=== PATIENT | male | born 1945 | race Caucasian/White ===

== ENCOUNTER → 2017-05-04 | Outpatient (REF) | payer OTHER | LOC: M LAB REF 17:12 | PROVIDERS: ATTEND Urology | DX: R35.0 Frequency of micturition (principal) ==

== ENCOUNTER → 2018-02-22 | Outpatient (REF) | payer OTHER ==
[2018-02-22 12:06] LABS: ALBUMIN 4.2 GM/DL (3.2-5.2); ALBUMIN/GLOBULIN RATIO 1.17 (1.00-1.93); ALKALINE PHOSPHATASE 53 U/L (45-117); ALT/SGPT 40 U/L (12-78); ANION GAP 8 MEQ/L (8-16); AST/SGOT 23 U/L (7-37); BILIRUBIN,TOTAL 0.5 MG/DL (0.2-1.0); BLOOD UREA NITROGEN 20 MG/DL (7-18); CALCIUM LEVEL 8.9 MG/DL (8.8-10.2); CARBON DIOXIDE LEVEL 30 MEQ/L (21-32); CHLORIDE LEVEL 102 MEQ/L (98-107); CHOLESTEROL LEVEL 150 MG/DL (<200); CHOLESTEROL RISK RATIO 3.571 (<5); CREATININE FOR GFR 1.28 MG/DL (0.70-1.30); GLUCOSE, FASTING 104 MG/DL (70-100); HDL CHOLESTEROL 42 MG/DL (>40); LDL CHOLESTEROL 90.8 MG/DL (<100); NON-HDL-C 108 MG/DL; POTASSIUM SERUM 3.9 MEQ/L (3.5-5.1); SODIUM LEVEL 140 MEQ/L (136-145); TOTAL PROTEIN 7.8 GM/DL (6.4-8.2); TRIGLYCERIDES LEVEL 86 MG/DL (<150)
== END ==
LOC: M SFHCCLAY 07:37
DX: I10 Essential (primary) hypertension (principal); E78.2 Mixed hyperlipidemia
CPT/HCPCS: 84443

== ENCOUNTER → 2018-03-14 | Outpatient (REF) | payer OTHER ==
[2018-03-14 16:50] LABS: ANION GAP 7 MEQ/L (8-16); BLOOD UREA NITROGEN 17 MG/DL (7-18); CALCIUM LEVEL 8.7 MG/DL (8.8-10.2); CARBON DIOXIDE LEVEL 30 MEQ/L (21-32); CHLORIDE LEVEL 101 MEQ/L (98-107); CREATININE FOR GFR 1.18 MG/DL (0.70-1.30); GLOMERULAR FILTRATION RATE > 60.0 (>42); GLUCOSE, FASTING 95 MG/DL (70-100); POTASSIUM SERUM 4.1 MEQ/L (3.5-5.1); SODIUM LEVEL 138 MEQ/L (136-145); URIC ACID 8.2 MG/DL (3.5-7.2)
[2018-03-14 17:00] LABS: FOLATE 11.2 NG/ML (>5.4); VITAMIN B12 LEVEL 288 PG/ML (247-911)
[2018-03-14 18:15] LABS: BASO % 0.3 % (0.0-1.0); EOS % 0.7 % (0.0-3.0); HEMATOCRIT 39.5 % (42.0-52.0); IMMATURE GRANULOCYTE % 0.3 % (0-3.0); LYMPH # 1.8 10^3/uL (1.5-4.5); LYMPH % 29.5 % (24.0-44.0); MEAN CORPUSCULAR HGB CONC 32.9 g/dl (32.0-36.5); MEAN CORPUSCULAR VOLUME 97.3 fl (80.0-96.0); MONO # 0.7 10^3/uL (0.0-0.8); MONO % 11.6 % (0.0-5.0); NEUTROPHILS # 3.4 10^3/uL (1.8-7.7); NEUTROPHILS % 57.6 % (36.0-66.0); PLATELET COUNT, AUTOMATED 195 10^3/uL (150-450); RED BLOOD COUNT 4.06 10^6/uL (4.30-6.10); RED CELL DISTRIBUTION WIDTH 12.4 % (11.5-14.5); WHITE BLOOD COUNT 5.9 10^3/uL (4.0-10.0)
== END ==
LOC: M SFHCCLAY 11:46
DX: M79.675 Pain in left toe(s) (principal); R20.2 Paresthesia of skin
CPT/HCPCS: 82746

== ENCOUNTER → 2018-06-29 | Outpatient (REF) | payer OTHER ==
[2018-06-29 12:16] LABS: ANION GAP 9 MEQ/L (8-16); BLOOD UREA NITROGEN 17 MG/DL (7-18); CALCIUM LEVEL 8.8 MG/DL (8.8-10.2); CARBON DIOXIDE LEVEL 29 MEQ/L (21-32); CHLORIDE LEVEL 103 MEQ/L (98-107); CREATININE FOR GFR 1.12 MG/DL (0.70-1.30); GLOMERULAR FILTRATION RATE > 60.0 (>42); GLUCOSE, FASTING 91 MG/DL (70-100); POTASSIUM SERUM 4.3 MEQ/L (3.5-5.1); SODIUM LEVEL 141 MEQ/L (136-145)
== END ==
LOC: M SFHCCLAY 08:12
DX: M10.072 Idiopathic gout, left ankle and foot (principal)
CPT/HCPCS: 84550

== ENCOUNTER → 2018-08-08 | Outpatient (REF) | payer OTHER ==
[2018-08-08 17:22] LABS: ALBUMIN 4.1 GM/DL (3.2-5.2); ALBUMIN/GLOBULIN RATIO 1.11 (1.00-1.93); ALKALINE PHOSPHATASE 74 U/L (45-117); ALT/SGPT 42 U/L (12-78); ANION GAP 7 MEQ/L (8-16); AST/SGOT 25 U/L (7-37); BILIRUBIN,TOTAL 0.6 MG/DL (0.2-1.0); BLOOD UREA NITROGEN 17 MG/DL (7-18); CALCIUM LEVEL 8.8 MG/DL (8.8-10.2); CARBON DIOXIDE LEVEL 30 MEQ/L (21-32); CHLORIDE LEVEL 101 MEQ/L (98-107); CREATININE FOR GFR 1.18 MG/DL (0.70-1.30); GLOMERULAR FILTRATION RATE > 60.0 (>42); GLUCOSE, FASTING 132 MG/DL (70-100); SODIUM LEVEL 138 MEQ/L (136-145); TOTAL PROTEIN 7.8 GM/DL (6.4-8.2)
== END ==
LOC: M SFHCCLAY 11:54
DX: R10.84 Generalized abdominal pain (principal); Z23 Encounter for immunization
CPT/HCPCS: 80053

== ENCOUNTER 2018-11-28 10:02 | Day surgery (SDC) | payer MEDICARE ==
[~2018-11-28] VITALS: Ht 188 cm; Wt 104.3 kg
[~2018-11-28 10:02] MED LIST: ALFU10TA2 PO; ALLO100T PO; ASPI1TAB PO; AVOD0.5C PO; HYDR25TAB PO; MELA10CA PO; NS 1,000 ML IV ONE; PROBCAP4 PO; SIMV20TA2 PO
[2018-11-28] MEDS ORDERED: fentaNYL 100 MCG/2 ML INJECTION (J3010) As Ordered ONE (11:41)
[2018-11-28] MEDS ORDERED: LIDOCAINE 2% INJ 100 MG/5 ML SDV (FOR ANES.) As Ordered ONE (11:52)
[2018-11-28] MEDS ORDERED: PROPOFOL 200 MG/20 ML VIAL As Ordered ONE (11:52)
--- NOTE | 2018-11-28 12:08 | ROOR ---
Patient Name: Juwan Cisneros Procedure Date: 11/28/2018 11:56 AM Date of : 1945 Age: 73 Room: [facility] Gender: Male Note Status: Finalized Procedure: Upper GI endoscopy Indications: Epigastric abdominal pain (resolved) Providers: Daniel CAPPS MD Referring MD: GEETA SHELTON DO Requesting Provider: Medicines: Monitored Anesthesia Care Complications: No immediate complications. Procedure: Pre-Anesthesia Assessment: - The heart rate, respiratory rate, oxygen saturations, blood pressure, adequacy of pulmonary ventilation, and response to care were monitored throughout the procedure. The Endoscope was introduced through the mouth, and advanced to the second part of duodenum. The upper GI endoscopy was accomplished without difficulty. The patient tolerated the procedure well. Findings: The esophagus was normal. The stomach was normal. The examined duodenum was normal. Impression: - Normal esophagus. - Normal stomach. - Normal examined duodenum. - No specimens collected. Recommendation: - Observe patient's clinical course. - I anticipate no further need for intervention. - Continue present medications. Daniel Capps MD Daniel CAPPS MD 11/28/2018 12:07:17 PM This report has been signed electronically. Number of Addenda: 0 Note Initiated On: 11/28/2018 11:56 AM Estimated Blood Loss: Estimated blood loss: none.
--- NOTE | 2018-11-28 12:29 | ROOR ---
Patient Name: Juwan Cisneros Procedure Date: 11/28/2018 11:58 AM Date of : 1945 Age: 73 Room: [facility] Gender: Male Note Status: Finalized Procedure: Colonoscopy Indications: Generalized abdominal pain, Clinically significant diarrhea of unexplained origin (resolved) Providers: Daniel CAPPS MD Referring MD: GEETA SHELTON DO Requesting Provider: Medicines: Monitored Anesthesia Care Complications: No immediate complications. Procedure: Pre-Anesthesia Assessment: - The heart rate, respiratory rate, oxygen saturations, blood pressure, adequacy of pulmonary ventilation, and response to care were monitored throughout the procedure. The Colonoscope was introduced through the anus and advanced to the terminal ileum, with identification of the appendiceal orifice and IC valve. The colonoscopy was performed without difficulty. The patient tolerated the procedure well. The quality of the bowel preparation was good. Findings: The perianal and digital rectal examinations were normal. Multiple small and large-mouthed diverticula were found in the sigmoid colon and descending colon. Internal hemorrhoids were found during retroflexion. The hemorrhoids were medium-sized. There was a pendulous medium-sized lipoma, 30 mm in diameter, with positive "pillow sign" on manipulation with biopsy forcep, located in the proximal transverse colon. The exam was otherwise without abnormality on direct and retroflexion views. Impression: - Diverticulosis in the sigmoid colon and in the descending colon. - Internal hemorrhoids. - Medium-sized lipoma in the proximal transverse colon. - The examination was otherwise normal on direct and retroflexion views. - No specimens collected. Recommendation: - Continue present medications. Daniel Capps MD Daniel CAPPS MD 11/28/2018 12:28:55 PM This report has been signed electronically. Number of Addenda: 0 Note Initiated On: 11/28/2018 11:58 AM Estimated Blood Loss: Estimated blood loss: none.
[2018-11-28 12:56] VITALS: BP 121/79
== END 2018-11-28 12:57 | disposition home or self-care (01) ==
LOC: M OPP 10:02
PROVIDERS: ATTEND Internal Medicine Gastroenterology
DX: K64.8 Other hemorrhoids (principal); D17.5 Benign lipomatous neoplasm of intra-abdominal organs; K57.30 Diverticulosis of large intestine without perforation or abscess without bleeding; R10.84 Generalized abdominal pain; R19.7 Diarrhea, unspecified; R10.13 Epigastric pain; Z79.82 Long term (current) use of aspirin; Z79.899 Other long term (current) drug therapy; Z88.8 Allergy status to other drugs, medicaments and biological substances
CPT/HCPCS: 43239; 45378; J3010

== ENCOUNTER → 2019-02-08 | Outpatient (REF) | payer OTHER ==
[~2019-02-08] MED LIST changes: -ASPI1TAB PO; +ASPI81TA26 PO; -NS 1,000 ML IV ONE
[2019-02-08 18:25] LABS: ALBUMIN 4.1 GM/DL (3.2-5.2); ALT/SGPT 33 U/L (12-78); BILIRUBIN,TOTAL 0.7 MG/DL (0.2-1.0); BLOOD UREA NITROGEN 20 MG/DL (7-18); CALCIUM LEVEL 8.7 MG/DL (8.8-10.2); CARBON DIOXIDE LEVEL 25 MEQ/L (21-32); CHLORIDE LEVEL 105 MEQ/L (98-107); CHOLESTEROL LEVEL 168 MG/DL (<200); CHOLESTEROL RISK RATIO 3.111 (<5); CREATININE FOR GFR 1.06 MG/DL (0.70-1.30); GLOMERULAR FILTRATION RATE > 60.0 (>42); GLUCOSE, FASTING 118 MG/DL (70-100); HDL CHOLESTEROL 54 MG/DL (>40); LDL CHOLESTEROL 95 MG/DL (<100); NON-HDL-C 114 MG/DL; POTASSIUM SERUM 4.3 MEQ/L (3.5-5.1); SODIUM LEVEL 138 MEQ/L (136-145); TOTAL PROTEIN 7.6 GM/DL (6.4-8.2); TRIGLYCERIDES LEVEL 96 MG/DL (<150); URIC ACID 5.6 MG/DL (3.5-7.2)
[2019-02-11 00:06] LABS: Lyme Disease IgG/IgM Antibodie <0.91 ISR (0.00-0.90); Lyme Disease IgM Ab Quantitati <0.80 index (0.00-0.79)
== END ==
LOC: M SFHCCLAY 09:50
PROVIDERS: ATTEND Family Medicine
DX: I10 Essential (primary) hypertension (principal); E78.2 Mixed hyperlipidemia; T07.XXXA Unspecified multiple injuries, initial encounter; M10.072 Idiopathic gout, left ankle and foot; Y92.9 Unspecified place or not applicable
CPT/HCPCS: 80053; 80061; 84550; 86617; G0463

== ENCOUNTER → 2019-05-17 | Outpatient (REF) | payer OTHER, MEDICARE | LOC: M LABDRAWC 11:13 | PROVIDERS: ATTEND Urology | DX: R35.0 Frequency of micturition (principal) ==

== ENCOUNTER → 2019-07-26 | Outpatient (CLI) | payer MEDICARE ==
--- NOTE | 2019-07-26 17:22 | REP ---
LUMBOSACRAL SPINE: Seven views of the lumbosacral spine are performed. Images obtained include AP, lateral and oblique views. There is no compression fracture. There is normal lumbar lordosis with slight anterior listhesis of L4 on L5 of about 3 mm without definite spondylolysis. There is moderate diffuse spurring. There is mild disc space narrowing and subchondral sclerosis at all levels. There is diffuse sclerosis and spurring at the posterior facet joints. Posterior elements are intact. There is mild sclerosis and narrowing at the sacroiliac joints. Metallic clips are seen in the right upper quadrant. A metallic BB is seen in the right lower quadrant. There are scattered vascular calcifications. IMPRESSION: Diffuse degenerative changes as above. Electronically Signed by Zachary Vivar MD 07/30/2019 02:46 P
== END ==
LOC: M CLY 16:02
PROVIDERS: ATTEND Family Medicine
DX: M51.36 Other intervertebral disc degeneration, lumbar region (principal); M25.9 Joint disorder, unspecified
CPT/HCPCS: 72110; G0463

== ENCOUNTER 2020-01-02 12:38 | Observation (INO) | payer MEDICARE ==
[~2020-01-02] VITALS: Ht 188 cm; Wt 112.5 kg
[~2020-01-02 12:38] MED LIST changes: -ALFU10TA2 PO; +ALFU10TA3 PO; -SIMV20TA2 PO; +SIMV20TA22 PO
[2020-01-02 13:54] LABS: BASO % 0.5 % (0.0-1.0); EOS % 0.5 % (0.0-3.0); HEMATOCRIT 40.1 % (42.0-52.0); HEMOGLOBIN 13.5 g/dl (13.5-17.5); LYMPH # 1.6 10^3/uL (1.5-5.0); LYMPH % 27.3 % (24.0-44.0); MEAN CORPUSCULAR HEMOGLOBIN 33.6 pg (27.0-33.0); MEAN CORPUSCULAR HGB CONC 33.7 g/dl (32.0-36.5); MEAN CORPUSCULAR VOLUME 99.8 fl (80.0-96.0); MONO # 0.9 10^3/uL (0.0-0.8); MONO % 14.5 % (0.0-5.0); NEUTROPHILS # 3.4 10^3/uL (1.5-8.5); NEUTROPHILS % 56.7 % (36.0-66.0); PLATELET COUNT, AUTOMATED 186 10^3/uL (150-450); RED BLOOD COUNT 4.02 10^6/uL (4.30-6.10)
[2020-01-02 14:16] LABS: ALBUMIN 3.8 GM/DL (3.2-5.2); ALT/SGPT 32 U/L (12-78); BILIRUBIN,DIRECT 0.1 MG/DL (0.0-0.2); BILIRUBIN,TOTAL 0.4 MG/DL (0.2-1.0); BLOOD UREA NITROGEN 20 MG/DL (7-18); CALCIUM LEVEL 8.7 MG/DL (8.8-10.2); CARBON DIOXIDE LEVEL 27 MEQ/L (21-32); CHLORIDE LEVEL 108 MEQ/L (98-107); CK-MB VALUE MASS 1.3 NG/ML (<3.6); CPK CREATINE PHOSPHOKINASE 112 U/L (39-308); CREATININE FOR GFR 1.14 MG/DL (0.70-1.30); GLOMERULAR FILTRATION RATE > 60.0 (>42); GLUCOSE, FASTING 92 MG/DL (70-100); LIPASE 97 U/L (73-393); MB/CK RELATIVE INDEX 1.16 (< OR =4); POTASSIUM SERUM 4.3 MEQ/L (3.5-5.1); SODIUM LEVEL 139 MEQ/L (136-145); TOTAL PROTEIN 6.9 GM/DL (6.4-8.2); TROPONIN I < 0.02 NG/ML (< 0.10)
--- NOTE | 2020-01-02 14:16 | REP ---
Portable chest, 01:16 p.m., single AP view with the patient sitting: Comparison is 03/20/2009. The lung mike are clear. The cardiac size is normal. The shelby, mediastinum, and skeletal structures are unremarkable. Impression: Negative portable chest. There is no interval change. Electronically Signed by Zachary Ospina MD 01/02/2020 02:08 P
[2020-01-02 14:27] LABS: INR 0.98; PROTHROMBIN TIME 12.7 SECONDS (11.8-14.0)
--- NOTE | 2020-01-02 14:28 | REP ---
CT BRAIN WITHOUT CONTRAST: HISTORY: Left-sided facial numbness. No comparison study. FINDINGS: Preliminary digital organizational psychologist radiograph is unremarkable. Bone window settings demonstrate an intact bony calvarium. Vascular calcification is noted in the distal internal carotid artery. Visualized paranasal sinuses are clear. No intraorbital abnormality is appreciated. There are two tiny low density areas in the right basal ganglia consistent with old lacunar infarcts. Mild small vessel atherosclerotic changes are seen. No acute cortical infarction is or acute deep white matter infarction is appreciated. No mass, extra-axial fluid collection, or midline shift is seen. IMPRESSION: Generalized atrophy and small vessel changes. Vascular calcification. Two tiny low density foci in the right basal ganglia consistent with old lacunar infarcts. No acute intracranial abnormality seen. Electronically Signed by Khoa Verdin MD 01/02/2020 04:51 P
[2020-01-02] MEDS ORDERED: ASPIRIN 81 MG CHEW TABLET PO ONE (14:30)
[2020-01-02 14:42] LABS: PARTIAL THROMBOPLASTIN TIME 25.3 SECONDS (25.0-38.4)
[2020-01-02 14:44] LABS: D-DIMER QUANT 348.17 ng/ml (<500)
[2020-01-02] MEDS ORDERED: SIME80TA PO (15:25)
[2020-01-02] MEDS ORDERED: IBUP-1764 PO (15:25)
[2020-01-02] MEDS ORDERED: LORazepam 2 MG/ML VIAL (J2060) IV ONE (15:30)
--- NOTE | 2020-01-02 16:52 | HPE ---
DATE OF ADMISSION: 01/02/2020 CHIEF COMPLAINT: Left facial numbness with substernal chest discomfort. HISTORY OF PRESENT ILLNESS: Mr. Cisneros is a 74-year-old gentleman who has history of hiatal hernia, hypertension, hyperlipidemia, gastroesophageal reflux disease (GERD), as well as benign prostatic hypertrophy (BPH). The patient presented to the ER today with acute onset of left facial numbness. He said he woke up and had a contractor over to the house and then sometime this morning he noticed that he was having left facial numbness that had remained steady. He reports that this has been intermittently occurring over the last month. He also experienced some substernal chest discomfort which has been going on for the same length of time. His chest discomfort has improved with taking Rolaids and Gas-X. He has no previous history of coronary artery disease. But he does have a strong family history of coronary artery disease as well as peripheral vascular disease. In the ER department the patient was evaluated. His preliminary EKG showed a normal sinus rhythm with left anterior fascicular block but showed no changes when compared to the EKG from 2008. His preliminary troponin, chest x-ray as well as CT of the head did not show any acute changes. The case was discussed with the neurologist who recommended admission to the hospital service for further stroke workup. ALLERGIES: LIPITOR which causes achy and flushed symptoms. HOME MEDICATIONS: - alfuzosin 10 mg at bedtime - allopurinol 100 mg at bedtime - baby aspirin daily - dutasteride 0.5 mg at bedtime - hydrochlorothiazide 25 mg at bedtime - ibuprofen 200 mg every 6 hours as needed for pain - melatonin 10 mg at bedtime as needed for sleep - simethicone 160 mg as needed for gas pain - simvastatin 20 mg at bedtime PAST MEDICAL HISTORY: Notable for Gout. Hypertension. Hyperlipidemia. BPH. Hiatal hernia. GERD. PAST SURGICAL HISTORY: Notable for Hernia repair. Left rotator cuff repair. Appendectomy. SOCIAL HISTORY: Patient is retired from [employer]. He has never smoked. He is a social drinker. Does not use any illicit drugs. He is . Lives at home with his . He is a FULL [employer]. His is his surrogate medical decision maker. FAMILY HISTORY: Notable for his brother who has carotid artery disease, dad who had coronary artery disease, as well as sister who has had TIA. REVIEW OF SYSTEMS: 12 systems reviewed with the patient, otherwise negative. He does tell me that he is claustrophobic to the MRI machine. PHYSICAL EXAMINATION: Temperature is 97.4, pulse 69 and regular. Respirations are 20, blood pressure is 182/83, oxygen saturation 99% on room air. GENERAL: Mr. Cisneros is alert and oriented times three. He has no speech impediment. He has no facial asymmetry. HEAD: Atraumatic. Normocephalic. Pupils are equal, round and reactive to light and accommodation. Extraocular movements are full in all directions. He has no scleral icterus. Oropharynx is clear, without erythema or thrush. Tongue is midline. Soft palate elevates bilaterally. Speech is fluent. He has bilateral hearing aids in and tympanic membranes visualized bilaterally. Just mild cerumen in the left external ear canal. Patient has no evidence of any rashes on his face or any vesicular Mouna Amin syndrome. NECK: Supple without any palpable lymphadenopathy. No audible carotid bruits. No palpable thyromegaly. LUNGS: Sounds appreciated without rales, wheezes or rhonchi. HEART: S1, S2. He is currently in sinus rhythm. I do not detect any murmurs, rubs or gallops. ABDOMEN: Slightly protuberant, nontender, nondistended without any palpable organomegaly. He has active bowel sounds. EXTREMITIES: Without any cyanosis, clubbing or edema. Muscle tone is symmetric. Muscle strength is 5/5 in the upper and lower extremities at the proximal and distal muscle group. Deep tendon reflexes are 2+ at the biceps as well as the knee. Difficult to elicit at the ankles and wrists. Gait is not tested. RELEVANT LABS: CT of the head showed two old lacunar infarcts. Chest x-ray was normal without any acute findings. 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 This is not exhibiting any change compared to his EKG from 2009. His white count is 6. His hemoglobin is 13.5, hematocrit 40.1, platelet count 186,000. PT is 12.7, INR 0.98. D-dimer is 348. Sodium 139, potassium 4.3, chloride 108, bicarbonate 27, anion gap is 4, BUN is 20, creatinine is 1.14. Glucose is 92. AST 16, ALT 32, alkaline phosphatase 67. Initial troponin is less than 0.02. Lipase is 97. IMPRESSION: 1. Left facial numbness. Rule out TIA. Although the patient's symptoms have abated, they are still present. A CT of the head was negative, but he does have evidence of previous lacunar infarct, which likely is related to his hypertension and would not be indicative of any atherosclerotic disease. He will be admitted to observation status and placed on telemetry to monitor for arrhythmias. I am going to switch him over from Plavix and discontinue his aspirin. Will check fasting lipid profile in the morning. We will obtain an echocardiogram, MRI as well as carotid duplex ultrasound. Further recommendations to follow based on these studies. Anticipate he can likely go home in the morning. 2. Chest pain. Will trend patient's serial troponin markers. We will also recheck the fasting lipid profile. He will be continued on atorvastatin for now pending any possible changes based on the results of the lipid profile. I recommended that he get an outpatient stress test once he is discharged and follows up with his PCP. 3. BPH. Patient will be continued on his home medications. 4. History of gout. He will be continued on allopurinol. 5. DVT prophylaxis. Patient is ambulator and does not warrant any Sequential compression devices (SCDs) or DVT prophylaxis and he will be the hospital for less than 24 hours.
[2020-01-02 17:05] VITALS: BP 164/79
[2020-01-02] MEDS ORDERED: allopurinoL 100 MG TAB PO SCH ×2 (18:00→21:00)
--- NOTE | 2020-01-02 20:01 | REPVR ---
PROCEDURE INFORMATION: Exam: MR Head Without Contrast Exam date and time: 01/02/2020 2:30 PM Age: 74 years old Clinical indication: Dizziness; Additional info: CVA TECHNIQUE: Imaging protocol: MR of the head without contrast. COMPARISON: CT Head without contrast 01/02/2020 1:46 PM FINDINGS: Brain: Moderate chronic microvascular ischemic changes. No acute infarct. No hemorrhage. Ventricles: Normal. No ventriculomegaly. Bones/joints: Unremarkable. Soft tissues: Unremarkable. Sinuses: Normal as visualized. No acute sinusitis. Mastoid air cells: Normal as visualized. No mastoid effusion. Orbits: Unremarkable. IMPRESSION: No acute intracranial abnormality. Chronic microvascular ischemic changes. Electronically signed by: Tyshawn Zelaya On 01/02/2020 20:00:57 PM
--- NOTE | 2020-01-02 20:33 | REPVR ---
PROCEDURE INFORMATION: Exam: MR Angiogram Head Without Contrast, Arteries Exam date and time: 01/02/2020 2:30 PM Age: 74 years old Clinical indication: Dizziness and giddiness; Additional info: CVA TECHNIQUE: Imaging protocol: MR angiogram head without contrast. Exam focused on the arteries. COMPARISON: CT Head without contrast 01/02/2020 1:46 PM FINDINGS: Right internal carotid artery: Unremarkable. Intracranial segment is patent with no significant stenosis. No aneurysm. Right anterior cerebral artery: Unremarkable. No occlusion or significant stenosis. No aneurysm. Right middle cerebral artery: Unremarkable. No occlusion or significant stenosis. No aneurysm. Right posterior cerebral artery: Unremarkable. No occlusion or significant stenosis. No aneurysm. Right vertebral artery: Unremarkable. No occlusion or significant stenosis. No aneurysm. Left internal carotid artery: Unremarkable. Intracranial segment is patent with no significant stenosis. No aneurysm. Left anterior cerebral artery: Unremarkable. No occlusion or significant stenosis. No aneurysm. Left middle cerebral artery: Unremarkable. No occlusion or significant stenosis. No aneurysm. Left posterior cerebral artery: Unremarkable. No occlusion or significant stenosis. No aneurysm. Left vertebral artery: Unremarkable. No occlusion or significant stenosis. No aneurysm. Basilar artery: Unremarkable. No occlusion or significant stenosis. No aneurysm. IMPRESSION: No acute abnormality. Electronically signed by: Tyshawn Zelaya On 01/02/2020 20:32:31 PM
--- NOTE | 2020-01-02 20:58 | ECGEPIP ---
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
[2020-01-02] MEDS ORDERED: DUTASTERIDE 0.5 MG CAP (AVODART) PO SCH (21:00)
[2020-01-02] MEDS ORDERED: SIMVASTATIN 20 MG TAB PO SCH (21:00)
[2020-01-02 22:00] VITALS: BP 152/74
[2020-01-03 02:00] VITALS: BP 130/77
[2020-01-03 06:00] VITALS: BP 147/75
[2020-01-03 06:32] LABS: CHOLESTEROL RISK RATIO 3.319 (<5)
--- NOTE | 2020-01-03 07:56 | REP ---
Clinical: Transient ischemic attack . Technique: Vivar scale and color Doppler evaluation using linear high frequency transducer Findings: Two-dimensional vivar scale and color images demonstrate normal arterial lumen with laminar flow and no appreciable narrowing. Color Doppler interrogation demonstrates normal arterial wave patterns and velocities with no significant spectral broadening. Normal flow direction is appreciated in the bilateral vertebral arteries. RIGHT (cm/s) LEFT (cm/s) ICA peak systolic velocity 73.5 69.6 ICA diastolic velocity 19.5 23.3 ECA peak systolic velocity 77.1 84.3 CCA peak systolic velocity 89.5 104.7 ICA/CCA ratio 0.82 0.66 Impression: No hemodynamically significant areas of narrowing or stenosis appreciated. Based on set standards narrowing falls within the less than 50% range. Electronically Signed by Porfirio Soto MD 01/03/2020 07:47 A
[2020-01-03] MEDS ORDERED: CLOPIDOGREL 75 MG TAB PO SCH (09:00)
[2020-01-03] MEDS ORDERED: CLOP75TA2 PO (09:58)
[2020-01-03 10:00] VITALS: BP 124/68
--- NOTE | 2020-01-03 10:12 | IPNPDOC ---
Subjective Date Seen The patient was seen on 01/03/20. Subjective Chief Complaint/HPI left facial numbness symptoms have resolved, no CP nor arrhythmias over night. Objective Physical Examination General Exam: Positive: Alert Eye Exam: Positive: PERRLA, Conjunctiva & lids normal, EOMI; Negative: Sclera icteric Neck Exam: Positive: Supple Chest Exam: Positive: Clear to auscultation Heart Exam: Positive: Rate Normal Telemetry: Positive: No significant arrhythmia Abdomen Exam: Positive: Normal bowel sounds Extremity Exam: Negative: Clubbing, Cyanosis, Edema Skin Exam: Positive: Nl turgor and temperature Psych Exam: Positive: Mental status NL Assessment /Plan Assessment # Left facial numbness. Rule out TIA. - MRI brain, MRA brain , and carotids are all normal - plavix 75 mg daily - home today - echo results pending # Chest pain - trops x 2 nl - tele normal - f/u with pcp in 1 week Plan/VTE VTE Prophylaxis Ordered?: No VTE Exclusion Mechanical Proph: Low Risk for VTE VTE Exclusion Pharmacological: At Low Risk for VTE VS, I&O, 24H, [facility] Vital Signs/I&O Vital Signs Date Time Temp Pulse Resp B/P (MAP) Pulse Ox O2 Delivery O2 Flow Rate FiO2 01/03/20 06:00 98.1 62 17 147/75 (99) 95 Room Air I&O- Last 24 Hours up to 6 AM 01/03/20 06:00 Intake Total 1020 ml Output Total 1925 ml Balance -905 ml Laboratory Data 24H LABS Laboratory Tests 2 01/02/20 13:36: Immature Granulocyte % (Auto) 0.5, Neutrophils (%) (Auto) 56.7, Lymphocytes (%) (Auto) 27.3, Monocytes (%) (Auto) 14.5H, Eosinophils (%) (Auto) 0.5, Basophils (%) (Auto) 0.5, Neutrophils # (Auto) 3.4, Lymphocytes # (Auto) 1.6, Monocytes # (Auto) 0.9H, Eosinophils # (Auto) 0.0, Basophils # (Auto) 0.0, Nucleated Red Blood Cells % (auto) 0.0, Prothrombin Time 12.7, Prothromb Time International Ratio 0.98, Activated Partial Thromboplast Time 25.3, D-Dimer, Quantitative 348.17, Anion Gap 4L, Glomerular Filtration Rate > 60.0, Calcium Level 8.7L, Total Bilirubin 0.4, Direct Bilirubin 0.1, Aspartate Amino Transf (AST/SGOT) 16, Alanine Aminotransferase (ALT/SGPT) 32, Alkaline Phosphatase 57, Total Creatine Kinase 112, Creatine Kinase MB 1.3, Creatine Kinase MB Relative Index 1.16, Troponin I < 0.02, Total Protein 6.9, Albumin 3.8, Albumin/Globulin Ratio 1.23, Lipase 97 01/02/20 20:00: Troponin I < 0.02 01/03/20 05:25: Triglycerides Level 83, Total Cholesterol 156, LDL Cholesterol 92, Non-HDL Cho lesterol (LDL + VLDL) 109, Total HDL Cholesterol 47, Cholesterol/HDL Ratio 3.319 CBC/BMP Laboratory Tests 01/02/20 13:36 CHRISTIANO YEE MD Jan 03, 2020 10:12
--- NOTE | 2020-01-03 19:57 | ECHO ---
DATE OF PROCEDURE: 01/03/2020 Date of : 1945 Age: 74 Gender: Male Height: 74 inches Weight: 249 pounds Body surface area: 2.39 meters squared Inpatient: [address] [place], room 4202 REFERRING PHYSICIAN: Sony Delatorre MD INDICATION: CVA - cardiac source of embolic material questionable. MEASUREMENTS: 2D Measurements: RV: 3.8 cm LV: 5.0 cm Septum: 1.3 cm Posterior wall: 1.3 cm Aortic root: 3.3 cm LA: 4.2 cm LVEF: 75% Doppler Measurements: AV: 1.39 meters per second LVOT: 1.25 meters per second LVOT diameter: 2.2 cm MV-E: 54, A: 75, EA ratio: 0.7. Early mitral deceleration time: 187 milliseconds E prime medial: 7.8, A prime medial: 9.5, E prime lateral: 8.3. Average E/E prime ratio: 6.7/pulmonary capillary wedge pressure: 10.2 mmHg. PV: 0.75 meters per second Pulmonary artery acceleration time: 120 milliseconds PASP: 29 mmHg COMMENTS: Normal sinus rhythm/sinus bradycardia without intraventricular conduction disturbance. Technically difficult study in light of the patient's body habitus but some diagnostically useful information was still obtained. M-mode and two-dimensional echocardiography was performed with pulsed, continuous wave, color flow and tissue Doppler studies. Mild concentric left ventricular hypertrophy with hyperkinetic wall motion. Mildly dilated left atrium with grade 1 LV diastolic dysfunction and currently normal estimated mean left atrial pressure. Normal right heart chamber sizes and motion and estimated pulmonary arterial pressure. Inferior vena cava (IVC) could not be visualized to further estimate central venous pressure. Mild aortic valvular sclerosis without apparent functional abnormality. Normal aortic diameters. Mild mitral annular thickening with no more than trace mitral insufficiency (physiologic). Normal appearing tricuspid valve with trace insufficiency (physiologic). No obvious mass or pedunculated vegetation could be visualized but as mentioned, the study was technically difficult. No pericardial effusion. If a cardiac source of embolic material is seriously suspect, we would recommend a transesophageal echocardiogram to further define cardiac structures.
--- NOTE | 2020-01-05 20:24 | DSES ---
DATE OF ADMISSION: 01/02/2020 DATE OF DISCHARGE: 01/03/2020 DISCHARGE DIAGNOSES: 1. Left facial numbness, possible transient ischemic attack (TIA). 2. Chest pain, unspecified, with normal cardiac enzymes. PROCEDURES PERFORMED ON THIS HOSPITALIZATION: None. CONSULTANTS ON THE CASE: None. DISPOSITION: Patient is discharged home. DISCHARGE INSTRUCTIONS: Patient is instructed to follow up with his primary care provider (PCP) within one week for outpatient cardiac stress testing. He is to discontinue aspirin and transition to Plavix 75 mg by mouth daily. CONDITION ON DISCHARGE: Resolution of symptoms. DISCHARGE MEDICATIONS: - Plavix 75 mg daily - alfuzosin 10 mg at bedtime - allopurinol 100 mg at bedtime - Avodart 0.5 mg at bedtime - hydrochlorothiazide 25 m at bedtime - ibuprofen 400 mg every 6 hours as needed for pain - melatonin 10 mg at bedtime as needed for sleep - simethicone 80 mg two tablets by mouth as needed for gas pain - simvastatin 20 mg at bedtime MEDICATIONS THAT ARE DISCONTINUED: - baby aspirin IMAGING STUDIES DONE DURING PATIENT'S HOSPITAL STAY: 1. Echocardiogram with Doppler which showed patient a preserved left ventricular ejection fraction with no evidence of cardioembolic source, nor any valvular heart disease. Please see the medical record for more details. 2. Chest x-ray, one view, which showed no acute intrapulmonary process. 3. CT of the head, which showed no acute intracranial event. 4. MRA of the head, which showed no vascular abnormalities. 5. MRI of the brain, which showed no evidence of acute stroke. 6. Carotid Doppler, which showed no evidence of critical carotid stenosis with evidence showing that the narrowing that was found is less than 50%. RELEVANT LABORATORIES: White count 6, hemoglobin 13.5, hematocrit 40.1, platelet count 186,000. PT 12.7, INR 0.98. Sodium 139, potassium 4.3, chloride 108, bicarbonate 27, anion gap 4, BUN 20, creatinine 1.14, calcium 8.7. AST 16, ALT 32, alkaline phosphatase 57. CPK 112. Troponin markers times two were negative. Lipase 97, triglycerides 83, total cholesterol 156, LDL 92, HDL 109. Total HDL 47. HOSPITAL COURSE: Mr. Cisneros is a 74-year-old gentleman who has cardiac risk factors who presented to the hospital with complaints of left facial numbness as well as chest discomfort, which was made difficult in presentation. The patient underwent a CT scan of the head, which was unremarkable. He had some mild left facial numbness. He was admitted to the hospitalist service after the emergency room (ER) physician discussed his case with the neurologist, who recommended further evaluation for a transient ischemic attack (TIA). The patient underwent an MRI, which was unremarkable. He was admitted to observation status. Serial troponins were monitored during his hospitalization, with no evidence of acute myocardial infarction (MD). His preliminary EKG on admission showed a normal sinus rhythm, with no specific ST or T-wave changes to indicate ischemic event. Patient underwent an echocardiogram, which showed no evidence of cardioembolic source. He was transitioned from aspirin to Plavix and subsequently discharged home in stable condition with instructions to follow up with PCP for a cardiac stress test. A total of 30 minutes was spent completing all discharge paperwork.
== END 2020-01-03 12:35 | disposition home or self-care (01) ==
LOC: M ED 12:38 → M ED INP 12:39 → ENRESERVTM 16:26 → ENRESERVDT 16:26 → M MSPAV 18:00
PROVIDERS: ADMIT Internal Medicine; ATTEND Internal Medicine
DX: R20.2 Paresthesia of skin (principal); G45.9 Transient cerebral ischemic attack, unspecified; R07.9 Chest pain, unspecified; K21.9 Gastro-esophageal reflux disease without esophagitis; I10 Essential (primary) hypertension; M10.9 Gout, unspecified; K44.9 Diaphragmatic hernia without obstruction or gangrene; E78.49 Other hyperlipidemia; Z79.02 Long term (current) use of antithrombotics/antiplatelets; Z79.899 Other long term (current) drug therapy; Z79.82 Long term (current) use of aspirin; Z88.8 Allergy status to other drugs, medicaments and biological substances
CPT/HCPCS: 36415; 70450; 70544; 70551; 71045; 80048; 80061; 80076; 82550; 82553; 83690; 84484; 85025; 85379; 85610; 85730; 93005; 93041; 93306; 93880; 94760; 96374; 99285; G0378; J2060

== ENCOUNTER → 2020-09-11 | Outpatient (CLI) | payer SELFPAY ==
[~2020-09-11] MED LIST changes: +CLOP75TA2 PO; +IBUP-1764 PO; +SIME80TA PO
== END ==
LOC: M LABSMTC 12:04
PROVIDERS: ATTEND Pediatrics
DX: Z20.828 Contact with and (suspected) exposure to other viral communicable diseases (principal)

== ENCOUNTER 2021-01-25 19:03 | Emergency (ER) | payer MEDICARE, SELFPAY ==
[~2021-01-25] VITALS: Ht 188 cm; Wt 113.6 kg
[~2021-01-25 19:03] MED LIST changes: +HYDR-3490 PO; -HYDR25TAB PO; +SIME80CH5 PO; -SIME80TA PO
[2021-01-25] MEDS ORDERED: LR 1,000 ML IV ONE ×2 (19:35→22:15)
[2021-01-25 19:42] LABS: EOS % 0.2 % (0.0-3.0); HEMATOCRIT 39.6 % (42.0-52.0); HEMOGLOBIN 12.8 g/dl (13.5-17.5); LYMPH # 0.9 10^3/uL (1.5-5.0); LYMPH % 14.2 % (24.0-44.0); MEAN CORPUSCULAR HGB CONC 32.3 g/dl (32.0-36.5); MEAN CORPUSCULAR VOLUME 102.1 fl (80.0-96.0); MONO # 0.9 10^3/uL (0.0-0.8); MONO % 13.9 % (2.0-8.0); NEUTROPHILS # 4.6 10^3/uL (1.5-8.5); NEUTROPHILS % 71.4 % (36.0-66.0); PLATELET COUNT, AUTOMATED 182 10^3/uL (150-450); RED BLOOD COUNT 3.88 10^6/uL (4.30-6.10); WHITE BLOOD COUNT 6.5 10^3/uL (4.0-10.0)
[2021-01-25 19:45] LABS: INR 0.97; PROTHROMBIN TIME 13.1 SECONDS (12.5-14.3)
[2021-01-25 19:46] LABS: PARTIAL THROMBOPLASTIN TIME 24.2 SECONDS (24.2-38.5)
--- NOTE | 2021-01-25 20:01 | REP ---
INDICATION: Syncope/near-syncope. COMPARISON: 01/02/2020, portable chest. TECHNIQUE: Portable AP chest with the patient upright. FINDINGS: The lung mike are clear. Cardiac size is normal. The shelby, mediastinum and skeletal structures are unremarkable. IMPRESSION: Essentially negative portable chest There is no interval change. <Electronically signed by Zachary Ospina > 01/25/211957
[2021-01-25 20:02] LABS: BLOOD UREA NITROGEN 15 MG/DL (7-18); CALCIUM LEVEL 8.7 MG/DL (8.8-10.2); CARBON DIOXIDE LEVEL 27 MEQ/L (21-32); CHLORIDE LEVEL 102 MEQ/L (98-107); CK-MB VALUE MASS 1.3 NG/ML (<3.6); CPK CREATINE PHOSPHOKINASE 98 U/L (39-308); CREATININE FOR GFR 1.21 MG/DL (0.70-1.30); FREE T4 1.02 NG/DL (0.76-1.46); GLOMERULAR FILTRATION RATE > 60.0 (>42); GLUCOSE, FASTING 117 MG/DL (70-100); MB/CK RELATIVE INDEX 1.33 (< OR =4); POTASSIUM SERUM 3.7 MEQ/L (3.5-5.1); SODIUM LEVEL 137 MEQ/L (136-145); TROPONIN I < 0.02 NG/ML (< 0.10)
--- NOTE | 2021-01-25 20:29 | REPVR ---
PROCEDURE INFORMATION: Exam: CT Head Without Contrast Exam date and time: 01/25/2021 7:53 PM Age: 76 years old Clinical indication: Syncope and collapse TECHNIQUE: Imaging protocol: Computed tomography of the head without contrast. Radiation optimization: All CT scans at this facility use at least one of these dose optimization techniques: automated exposure control; mA and/or kV adjustment per patient size (includes targeted exams where dose is matched to clinical indication); or iterative reconstruction. COMPARISON: CT Head without contrast 01/02/2020 1:46 PM FINDINGS: Brain: Moderate to severe volume loss. Decreased attenuation of the supratentorial white matter is likely secondary to chronic microvascular ischemia. No acute intracranial hemorrhage, midline shift or intracranial mass effect. 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 Cerebral ventricles: No hydrocephalus. Bones/joints: Unremarkable. No acute fracture. Paranasal sinuses: Polypoid mucosal disease involving the right maxillary sinus. Mastoid air cells: Visualized mastoid air cells are well aerated. Soft tissues: Unremarkable. IMPRESSION: No acute intracranial abnormality. Electronically signed by: Miles Dumont On 01/25/2021 20:29:29 PM
[2021-01-25 22:13] LABS: RSV AMPLIFICATION NEGATIVE (NEGATIVE)
[2021-01-25 23:17] LABS: CK-MB VALUE MASS < 1.0 NG/ML (<3.6); CPK CREATINE PHOSPHOKINASE 95 U/L (39-308); MB/CK RELATIVE INDEX 1.05 (< OR =4); TROPONIN I < 0.02 NG/ML (< 0.10)
[2021-01-25] MEDS ORDERED: CVS0.52C PO (23:26)
[2021-01-26 00:34] VITALS: BP 162/74
--- NOTE | 2021-01-27 17:44 | ECGEPIP ---
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
== END 2021-01-26 00:42 | disposition home or self-care (01) ==
LOC: M ED 19:03
DX: R55 Syncope and collapse (principal); R19.7 Diarrhea, unspecified; I10 Essential (primary) hypertension; E78.5 Hyperlipidemia, unspecified; N40.0 Benign prostatic hyperplasia without lower urinary tract symptoms; Z88.8 Allergy status to other drugs, medicaments and biological substances; Z79.899 Other long term (current) drug therapy

== ENCOUNTER → 2021-03-02 | Outpatient (REF) | payer MEDICARE ==
[~2021-03-02] MED LIST changes: +CVS0.52C PO
[2021-03-02 16:45] LABS: BASO % 0.6 % (0.0-1.0); EOS # 0.1 10^3/uL (0.0-0.5); HEMATOCRIT 41.5 % (42.0-52.0); HEMOGLOBIN 13.3 g/dl (13.5-17.5); LYMPH # 2.1 10^3/uL (1.5-5.0); LYMPH % 30.5 % (24.0-44.0); MEAN CORPUSCULAR HEMOGLOBIN 32.9 pg (27.0-33.0); MEAN CORPUSCULAR VOLUME 102.7 fl (80.0-96.0); MONO # 0.9 10^3/uL (0.0-0.8); MONO % 12.9 % (2.0-8.0); NEUTROPHILS # 3.7 10^3/uL (1.5-8.5); NEUTROPHILS % 54.3 % (36.0-66.0); PLATELET COUNT, AUTOMATED 181 10^3/uL (150-450); RED BLOOD COUNT 4.04 10^6/uL (4.30-6.10); WHITE BLOOD COUNT 6.8 10^3/uL (4.0-10.0)
[2021-03-02 17:13] LABS: ALT/SGPT 28 U/L (12-78); BILIRUBIN,TOTAL 0.6 MG/DL (0.2-1.0); BLOOD UREA NITROGEN 19 MG/DL (7-18); CALCIUM LEVEL 9.3 MG/DL (8.8-10.2); CARBON DIOXIDE LEVEL 28 MEQ/L (21-32); CHLORIDE LEVEL 108 MEQ/L (98-107); CHOLESTEROL LEVEL 176 MG/DL (<200); CHOLESTEROL RISK RATIO 2.838 (<5); CREATININE FOR GFR 0.95 MG/DL (0.70-1.30); GLOMERULAR FILTRATION RATE > 60.0 (>42); GLUCOSE, FASTING 97 MG/DL (70-100); HDL CHOLESTEROL 62 MG/DL (>40); LDL CHOLESTEROL 96 MG/DL (<100); NON-HDL-C 114 MG/DL; POTASSIUM SERUM 4.9 MEQ/L (3.5-5.1); SODIUM LEVEL 140 MEQ/L (136-145); TOTAL PROTEIN 7.1 GM/DL (6.4-8.2); TRIGLYCERIDES LEVEL 88 MG/DL (<150); URIC ACID 5.7 MG/DL (3.5-7.2)
== END ==
LOC: M SFHCCLAY 09:35
PROVIDERS: ATTEND Family Medicine
DX: E78.2 Mixed hyperlipidemia (principal); I10 Essential (primary) hypertension; Z87.39 Personal history of other diseases of the musculoskeletal system and connective tissue

== ENCOUNTER → 2021-03-26 | Outpatient (REF) | payer MEDICARE | LOC: M SFHCCLAY 12:25 | PROVIDERS: ATTEND Family Medicine | DX: Z12.5 Encounter for screening for malignant neoplasm of prostate (principal) ==

== ENCOUNTER → 2021-04-08 | Outpatient (REF) | payer MEDICARE ==
[2021-04-08 18:32] LABS: BACTERIA, URINE AUTO NEGATIVE (NEGATIVE); MUCUS, URINE SMALL (NEGATIVE); RBC, URINE AUTO 0 /HPF (0-3); SQUAMOUS EPITHELIAL CELL UR AU 0 /HPF (0-6); WBC, URINE AUTO 0 /HPF (0-3)
== END ==
LOC: M SMT 17:00
PROVIDERS: ATTEND Specialist
DX: N50.819 Testicular pain, unspecified (principal)
CPT/HCPCS: 51798; 81015; 87086; G0463

== ENCOUNTER → 2021-04-14 | Outpatient (CLI) | payer MEDICARE ==
--- NOTE | 2021-04-17 06:36 | REP ---
INDICATION: PAIN IN TESTIS. COMPARISON: None. TECHNIQUE: Real-time sonographic evaluation of scrotum and contents performed FINDINGS: Testicles are normal in size, right testicle measuring 4.2 x 2.3 x 2.9 cm and left testicle 3.6 x 2.1 x 2.8 cm. There is no testicular mass or torsion, blood flow is seen in each testicle with duplex Doppler evaluation. There is somewhat heterogeneous echotexture diffusely throughout both testicles, with possible increased Doppler color flow bilaterally raising the possibility of bilateral orchitis. A 2 mm cyst is seen in the head of the right epididymis. Three adjacent benign cysts are seen in the upper left testicle along the mediastinum, ranging in diameter between 2 and 4 mm. There is also a cyst of the head of the left epididymis 4 mm in diameter. IMPRESSION: No testicular mass or torsion. Heterogeneous echotexture of the testicles, with possible mild increased flow bilaterally, suggests possible mild bilateral orchitis. <Electronically signed by Zachary Vivar > 04/14/21 [id number]
== END ==
LOC: M RAD 15:52
PROVIDERS: ATTEND Specialist
DX: N50.819 Testicular pain, unspecified (principal)

== ENCOUNTER → 2021-08-27 | Outpatient (REF) | payer MEDICARE ==
[2021-08-27 15:53] LABS: BASO % 0.4 % (0.0-1.0); EOS % 0.7 % (0.0-3.0); HEMOGLOBIN 13.4 g/dl (13.5-17.5); LYMPH # 1.5 10^3/uL (1.5-5.0); LYMPH % 26.4 % (24.0-44.0); MEAN CORPUSCULAR HEMOGLOBIN 32.8 pg (27.0-33.0); MEAN CORPUSCULAR HGB CONC 31.9 g/dl (32.0-36.5); MEAN CORPUSCULAR VOLUME 102.9 fl (80.0-96.0); MONO # 0.8 10^3/uL (0.0-0.8); MONO % 13.5 % (2.0-8.0); NEUTROPHILS # 3.3 10^3/uL (1.5-8.5); NEUTROPHILS % 58.5 % (36.0-66.0); PLATELET COUNT, AUTOMATED 183 10^3/uL (150-450); RED BLOOD COUNT 4.08 10^6/uL (4.30-6.10); WHITE BLOOD COUNT 5.7 10^3/uL (4.0-10.0)
[2021-08-27 16:28] LABS: ALBUMIN 3.9 GM/DL (3.2-5.2); ALT/SGPT 28 U/L (12-78); BILIRUBIN,TOTAL 0.5 MG/DL (0.2-1.0); BLOOD UREA NITROGEN 19 MG/DL (7-18); CALCIUM LEVEL 9.3 MG/DL (8.8-10.2); CARBON DIOXIDE LEVEL 26 MEQ/L (21-32); CHLORIDE LEVEL 105 MEQ/L (98-107); CREATININE FOR GFR 1.19 MG/DL (0.70-1.30); GLOMERULAR FILTRATION RATE > 60.0 (>42); GLUCOSE, FASTING 108 MG/DL (70-100); POTASSIUM SERUM 4.7 MEQ/L (3.5-5.1); SODIUM LEVEL 139 MEQ/L (136-145); TOTAL PROTEIN 7.2 GM/DL (6.4-8.2); URIC ACID 5.4 MG/DL (3.5-7.2)
== END ==
LOC: M SFHCCLAY 10:33
PROVIDERS: ATTEND Family Medicine
DX: I10 Essential (primary) hypertension (principal); Z87.39 Personal history of other diseases of the musculoskeletal system and connective tissue

== ENCOUNTER → 2022-01-14 | Outpatient (REF) | payer MEDICARE ==
[2022-01-14 16:50] LABS: FREE T4 1.28 NG/DL (0.76-1.46); THYROID STIMULATING HORMONE 1.34 uIU/ML (0.358-3.740)
[2022-01-14 16:53] LABS: FOLATE 10.7 NG/ML (>5.4)
== END ==
LOC: M LABDRAWC 15:45
PROVIDERS: ATTEND Psychiatry & Neurology Neurology
DX: Z79.899 Other long term (current) drug therapy (principal)

== ENCOUNTER 2022-01-19 11:20 | Observation (INO) | payer MEDICARE ==
[~2022-01-19] VITALS: Ht 188 cm; Wt 111.1 kg
[2022-01-19 12:35] LABS: BASO % 0.3 % (0.0-1.0); EOS % 0.1 % (0.0-3.0); HEMATOCRIT 37.7 % (42.0-52.0); HEMOGLOBIN 13.1 g/dl (13.5-17.5); LYMPH # 1.2 10^3/uL (1.5-5.0); LYMPH % 13.4 % (24.0-44.0); MEAN CORPUSCULAR HEMOGLOBIN 32.6 pg (27.0-33.0); MEAN CORPUSCULAR HGB CONC 34.7 g/dl (32.0-36.5); MEAN CORPUSCULAR VOLUME 93.8 fl (80.0-96.0); MONO % 10.4 % (2.0-8.0); NEUTROPHILS # 6.9 10^3/uL (1.5-8.5); NEUTROPHILS % 74.9 % (36.0-66.0); PLATELET COUNT, AUTOMATED 259 10^3/uL (150-450); RED BLOOD COUNT 4.02 10^6/uL (4.30-6.10); WHITE BLOOD COUNT 9.2 10^3/uL (4.0-10.0)
[2022-01-19] MEDS ORDERED: CARB25TA9 PO (16:17)
[2022-01-19] MEDS ORDERED: ATIV1TAB10 PO (16:17)
[2022-01-19] MEDS ORDERED: BUSP10TA PO (16:17)
[2022-01-19] MEDS ORDERED: MELA5CAP2 PO (16:17)
[2022-01-19] MEDS ORDERED: LEXA1TAB2 PO (16:17)
[2022-01-19] MEDS ORDERED: VALS1TAB66 PO (16:17)
[2022-01-19] MEDS ORDERED: HOME MED LIST COMPLETE! XX SCH (16:20)
[2022-01-19] MEDS ORDERED: MAALOX 30 ML SUSP *UDC PO PRN (16:25)
[2022-01-19] MEDS ORDERED: ACETAMINOPHEN TAB 650MG DOSE (2X325MG) PO PRN (16:25)
[2022-01-19] MEDS ORDERED: LORazepam 2 MG/ML VIAL IV STA ×2 (17:20→18:04)
[2022-01-19] MEDS ORDERED: LORazepam 2 MG/ML VIAL As Ordered ONE ×2 (17:43→18:09)
[2022-01-19 18:17] LABS: RSV AMPLIFICATION NEGATIVE (NEGATIVE)
[2022-01-19] MEDS: allopurinoL 100 MG TAB PO SCH (22:46)
[2022-01-19] MEDS: busPIRone 10 MG TAB PO SCH (22:46)
[2022-01-19] MEDS: DOCUSATE SODIUM 100MG CAPSULE PO SCH (22:46)
[2022-01-19] MEDS: SIMVASTATIN 20 MG TAB PO SCH (22:47)
[2022-01-19 23:16] VITALS: BP 130/68
[2022-01-20] MEDS: RAMELTEON 8 MG TAB (ROZEREM) PO PRN (01:19)
[2022-01-20 01:21] VITALS: BP_SYST 114; BP_SYST 138; BP_SYST 99; BP_DIAS 109; BP_DIAS 61; BP_DIAS 67
[2022-01-20 06:00] VITALS: BP 148/69
[2022-01-20 08:32] LABS: BASO # 0.1 10^3/uL (0.0-0.2); BASO % 0.5 % (0.0-1.0); EOS % 0.4 % (0.0-3.0); HEMATOCRIT 34.8 % (42.0-52.0); HEMOGLOBIN 12.5 g/dl (13.5-17.5); LYMPH # 2.2 10^3/uL (1.5-5.0); LYMPH % 23.3 % (24.0-44.0); MEAN CORPUSCULAR HEMOGLOBIN 33.2 pg (27.0-33.0); MEAN CORPUSCULAR HGB CONC 35.9 g/dl (32.0-36.5); MEAN CORPUSCULAR VOLUME 92.6 fl (80.0-96.0); MONO # 1.2 10^3/uL (0.0-0.8); MONO % 13.2 % (2.0-8.0); NEUTROPHILS # 5.7 10^3/uL (1.5-8.5); NEUTROPHILS % 61.4 % (36.0-66.0); PLATELET COUNT, AUTOMATED 254 10^3/uL (150-450); RED BLOOD COUNT 3.76 10^6/uL (4.30-6.10); WHITE BLOOD COUNT 9.3 10^3/uL (4.0-10.0)
[2022-01-20] MEDS: DOCUSATE SODIUM 100MG CAPSULE PO SCH ×2 (08:40→20:55)
[2022-01-20] MEDS: busPIRone 10 MG TAB PO SCH ×3 (08:40→20:55)
[2022-01-20] MEDS: ESCITALOPRAM OXALATE 10 MG TAB (LEXAPRO) PO SCH (08:40)
[2022-01-20] MEDS: SINEMET 25-100 MG TAB PO SCH ×3 (08:40→16:25)
[2022-01-20 09:10] LABS: ALBUMIN 3.7 GM/DL (3.2-5.2); ALT/SGPT 34 U/L (12-78); BILIRUBIN,TOTAL 0.5 MG/DL (0.2-1.0); BLOOD UREA NITROGEN 16 MG/DL (7-18); CARBON DIOXIDE LEVEL 31 MEQ/L (21-32); CHLORIDE LEVEL 87 MEQ/L (98-107); CREATININE FOR GFR 1.15 MG/DL (0.70-1.30); GLOMERULAR FILTRATION RATE > 60.0 (>42); GLUCOSE, FASTING 102 MG/DL (70-100); MAGNESIUM LEVEL 2.4 MG/DL (1.8-2.4); POTASSIUM SERUM 3.8 MEQ/L (3.5-5.1); SODIUM LEVEL 125 MEQ/L (136-145); TOTAL PROTEIN 6.7 GM/DL (6.4-8.2)
[2022-01-20] MEDS: DUTASTERIDE 0.5 MG CAP (AVODART) PO SCH (10:06)
[2022-01-20] MEDS: VALSARTAN 80 MG TAB (DIOVAN) PO SCH (12:53)
[2022-01-20 14:00] VITALS: BP_SYST 118; BP_SYST 126; BP_SYST 141; BP_SYST 98; BP_DIAS 58; BP_DIAS 59; BP_DIAS 68; BP_DIAS 86
[2022-01-20] MEDS: NS 1,000 ML IV SCH (16:26)
[2022-01-20] MEDS ORDERED: LORazepam 1 MG TAB PO ONE (18:50)
[2022-01-20 19:20] VITALS: BP 142/65
[2022-01-20] MEDS: SIMVASTATIN 20 MG TAB PO SCH (20:55)
[2022-01-20] MEDS: allopurinoL 100 MG TAB PO SCH (20:55)
[2022-01-20] MEDS: ALFUZOSIN 10 MG PO SCH (20:55)
[2022-01-20] MEDS: CHLORHEXIDINE GLUCONATE 0.12 % 15ML UDC (PERIDEX ORAL RINSE) MT SCH (20:57)
[2022-01-21] MEDS: NS 1,000 ML IV SCH ×2 (00:27→09:00)
[2022-01-21 05:04] VITALS: BP_SYST 110; BP_SYST 115; BP_SYST 123; BP_DIAS 56; BP_DIAS 75; BP_DIAS 88
[2022-01-21 06:00] VITALS: BP 154/59
[2022-01-21 06:17] LABS: BASO % 0.5 % (0.0-1.0); EOS # 0.1 10^3/uL (0.0-0.5); EOS % 0.7 % (0.0-3.0); HEMATOCRIT 31.2 % (42.0-52.0); LYMPH # 3.2 10^3/uL (1.5-5.0); LYMPH % 39.8 % (24.0-44.0); MEAN CORPUSCULAR HEMOGLOBIN 33.2 pg (27.0-33.0); MEAN CORPUSCULAR HGB CONC 35.3 g/dl (32.0-36.5); MEAN CORPUSCULAR VOLUME 94.3 fl (80.0-96.0); MONO # 1.1 10^3/uL (0.0-0.8); MONO % 13.1 % (2.0-8.0); NEUTROPHILS # 3.7 10^3/uL (1.5-8.5); PLATELET COUNT, AUTOMATED 231 10^3/uL (150-450); RED BLOOD COUNT 3.31 10^6/uL (4.30-6.10); WHITE BLOOD COUNT 8.1 10^3/uL (4.0-10.0)
[2022-01-21 06:40] LABS: BLOOD UREA NITROGEN 13 MG/DL (7-18); CALCIUM LEVEL 8.1 MG/DL (8.8-10.2); CARBON DIOXIDE LEVEL 29 MEQ/L (21-32); CHLORIDE LEVEL 93 MEQ/L (98-107); CREATININE FOR GFR 0.99 MG/DL (0.70-1.30); GLOMERULAR FILTRATION RATE > 60.0 (>42); GLUCOSE, FASTING 89 MG/DL (70-100); MAGNESIUM LEVEL 2.3 MG/DL (1.8-2.4); POTASSIUM SERUM 3.6 MEQ/L (3.5-5.1); SODIUM LEVEL 127 MEQ/L (136-145)
[2022-01-21] MEDS: CHLORHEXIDINE GLUCONATE 0.12 % 15ML UDC (PERIDEX ORAL RINSE) MT SCH ×2 (08:59→21:00)
[2022-01-21] MEDS: DOCUSATE SODIUM 100MG CAPSULE PO SCH ×2 (09:00→20:59)
[2022-01-21] MEDS: busPIRone 10 MG TAB PO SCH ×3 (09:00→21:00)
[2022-01-21] MEDS: SINEMET 25-100 MG TAB PO SCH ×3 (09:00→17:11)
[2022-01-21] MEDS: ESCITALOPRAM OXALATE 10 MG TAB (LEXAPRO) PO SCH (09:00)
[2022-01-21 09:01] VITALS: BP 154/59
[2022-01-21] MEDS: VALSARTAN 80 MG TAB (DIOVAN) PO SCH (09:01)
[2022-01-21] MEDS: DUTASTERIDE 0.5 MG CAP (AVODART) PO SCH (09:03)
[2022-01-21 09:20] VITALS: BP_SYST 131; BP_SYST 134; BP_SYST 99; BP_DIAS 59; BP_DIAS 65; BP_DIAS 66
[2022-01-21] MEDS: SODIUM CHLORIDE 1 GM TAB PO SCH ×3 (10:49→21:00)
[2022-01-21 10:57] LABS: CORTISOL AM 17.4 UG/DL (4.3-22.4)
[2022-01-21] MEDS ORDERED: PNEUMOCOCCAL VACCINE 0.5ML SYRINGE (PNEUMOVAX 23) IM ONE (12:00)
[2022-01-21 14:00] VITALS: BP 128/59
[2022-01-21 18:00] VITALS: BP 146/70
[2022-01-21] MEDS: LORazepam 0.5 MG TAB PO PRN (18:45)
[2022-01-21] MEDS: allopurinoL 100 MG TAB PO SCH (20:58)
[2022-01-21] MEDS: ALFUZOSIN 10 MG PO SCH (20:59)
[2022-01-21] MEDS: SIMVASTATIN 20 MG TAB PO SCH (21:00)
[2022-01-22] MEDS: RAMELTEON 8 MG TAB (ROZEREM) PO PRN (00:34)
[2022-01-22 03:43] VITALS: BP 137/53
[2022-01-22] MEDS: LORazepam 0.5 MG TAB PO PRN (04:29)
[2022-01-22 06:00] VITALS: BP 114/84
[2022-01-22 06:15] LABS: BASO % 0.5 % (0.0-1.0); EOS % 0.5 % (0.0-3.0); HEMATOCRIT 30.5 % (42.0-52.0); HEMOGLOBIN 10.7 g/dl (13.5-17.5); LYMPH # 2.2 10^3/uL (1.5-5.0); LYMPH % 25.7 % (24.0-44.0); MEAN CORPUSCULAR HEMOGLOBIN 33.3 pg (27.0-33.0); MEAN CORPUSCULAR HGB CONC 35.1 g/dl (32.0-36.5); MONO % 12.3 % (2.0-8.0); NEUTROPHILS # 5.1 10^3/uL (1.5-8.5); NEUTROPHILS % 60.4 % (36.0-66.0); PLATELET COUNT, AUTOMATED 219 10^3/uL (150-450); RED BLOOD COUNT 3.21 10^6/uL (4.30-6.10); WHITE BLOOD COUNT 8.5 10^3/uL (4.0-10.0)
[2022-01-22 06:37] LABS: BLOOD UREA NITROGEN 13 MG/DL (7-18); CALCIUM LEVEL 8.1 MG/DL (8.8-10.2); CARBON DIOXIDE LEVEL 29 MEQ/L (21-32); CHLORIDE LEVEL 98 MEQ/L (98-107); CREATININE FOR GFR 1.02 MG/DL (0.70-1.30); GLOMERULAR FILTRATION RATE > 60.0 (>42); GLUCOSE, FASTING 115 MG/DL (70-100); MAGNESIUM LEVEL 2.5 MG/DL (1.8-2.4); POTASSIUM SERUM 3.3 MEQ/L (3.5-5.1); SODIUM LEVEL 131 MEQ/L (136-145)
[2022-01-22] MEDS: busPIRone 10 MG TAB PO SCH (09:33)
[2022-01-22] MEDS: DOCUSATE SODIUM 100MG CAPSULE PO SCH (09:33)
[2022-01-22] MEDS: DUTASTERIDE 0.5 MG CAP (AVODART) PO SCH (09:33)
[2022-01-22] MEDS: ESCITALOPRAM OXALATE 10 MG TAB (LEXAPRO) PO SCH (09:33)
[2022-01-22] MEDS: SODIUM CHLORIDE 1 GM TAB PO SCH (09:33)
[2022-01-22] MEDS: CHLORHEXIDINE GLUCONATE 0.12 % 15ML UDC (PERIDEX ORAL RINSE) MT SCH (09:33)
[2022-01-22] MEDS: SINEMET 25-100 MG TAB PO SCH ×2 (09:33→12:34)
[2022-01-22] MEDS: VALSARTAN 80 MG TAB (DIOVAN) PO SCH (09:34)
[2022-01-22 10:20] VITALS: BP_SYST 121; BP_SYST 142; BP_SYST 155; BP_DIAS 57; BP_DIAS 65; BP_DIAS 73
[2022-01-22] MEDS ORDERED: SODI1TAB6 PO (11:07)
[2022-01-22] MEDS ORDERED: POTASSIUM CHLORIDE 10MEQ SR TABLET PO ONE (12:30)
== END 2022-01-22 16:24 | disposition home or self-care (01) ==
LOC: M ED 11:20 → M ED INP 16:22 → M MSPAV 23:16
PROVIDERS: ADMIT Family Medicine; ATTEND Family Medicine
DX: R55 Syncope and collapse (principal); R42 Dizziness and giddiness; I95.1 Orthostatic hypotension; G20 Parkinson's disease; E87.1 Hypo-osmolality and hyponatremia; I10 Essential (primary) hypertension; E78.5 Hyperlipidemia, unspecified; M10.9 Gout, unspecified; Z86.73 Personal history of transient ischemic attack (TIA), and cerebral infarction without residual deficits; F41.9 Anxiety disorder, unspecified; F32.9 Major depressive disorder, single episode, unspecified; Z79.899 Other long term (current) drug therapy; Z88.8 Allergy status to other drugs, medicaments and biological substances
CPT/HCPCS: 36415; 70544; 70551; 80047; 80048; 80053; 82533; 83735; 85025; 87631; 90732; 93005; 93306; 93880; 95819; 96374; 96376; 97116; 97161; 97530; 99285; G0009; G0378; J2060

== ENCOUNTER → 2022-01-28 | Outpatient (REF) | payer MEDICARE ==
[~2022-01-28] MED LIST changes: +ATIV1TAB10 PO; +BUSP10TA PO; +CARB25TA9 PO; +LEXA1TAB2 PO; +MELA5CAP2 PO; +SODI1TAB6 PO; +VALS1TAB66 PO
[2022-01-28 16:43] LABS: ALBUMIN 3.9 GM/DL (3.2-5.2); ALT/SGPT 21 U/L (12-78); BILIRUBIN,TOTAL 0.5 MG/DL (0.2-1.0); BLOOD UREA NITROGEN 14 MG/DL (7-18); CALCIUM LEVEL 9.4 MG/DL (8.8-10.2); CARBON DIOXIDE LEVEL 28 MEQ/L (21-32); CHLORIDE LEVEL 100 MEQ/L (98-107); CREATININE FOR GFR 1.06 MG/DL (0.70-1.30); GLOMERULAR FILTRATION RATE > 60.0 (>42); GLUCOSE, FASTING 124 MG/DL (70-100); SODIUM LEVEL 133 MEQ/L (136-145)
== END ==
LOC: M SFHCCLAY 10:50
PROVIDERS: ATTEND Family Medicine
DX: E87.1 Hypo-osmolality and hyponatremia (principal)

== ENCOUNTER → 2022-03-08 | Outpatient (REF) | payer MEDICARE ==
[2022-03-08 11:43] LABS: BASO % 0.3 % (0.0-1.0); EOS # 0.1 10^3/uL (0.0-0.5); HEMATOCRIT 36.1 % (42.0-52.0); HEMOGLOBIN 11.8 g/dl (13.5-17.5); LYMPH # 1.5 10^3/uL (1.5-5.0); LYMPH % 24.7 % (24.0-44.0); MEAN CORPUSCULAR HEMOGLOBIN 33.8 pg (27.0-33.0); MEAN CORPUSCULAR HGB CONC 32.7 g/dl (32.0-36.5); MEAN CORPUSCULAR VOLUME 103.4 fl (80.0-96.0); MONO # 0.7 10^3/uL (0.0-0.8); MONO % 11.5 % (2.0-8.0); NEUTROPHILS # 3.9 10^3/uL (1.5-8.5); PLATELET COUNT, AUTOMATED 211 10^3/uL (150-450); RED BLOOD COUNT 3.49 10^6/uL (4.30-6.10); WHITE BLOOD COUNT 6.2 10^3/uL (4.0-10.0)
[2022-03-08 12:19] LABS: ALBUMIN 3.7 GM/DL (3.2-5.2); ALT/SGPT 10 U/L (12-78); BILIRUBIN,TOTAL 0.5 MG/DL (0.2-1.0); BLOOD UREA NITROGEN 15 MG/DL (7-18); CALCIUM LEVEL 9.2 MG/DL (8.8-10.2); CARBON DIOXIDE LEVEL 27 MEQ/L (21-32); CHLORIDE LEVEL 110 MEQ/L (98-107); CHOLESTEROL LEVEL 158 MG/DL (<200); CHOLESTEROL RISK RATIO 2.821 (<5); CREATININE FOR GFR 1.04 MG/DL (0.70-1.30); GLOMERULAR FILTRATION RATE > 60.0 (>42); GLUCOSE, FASTING 104 MG/DL (70-100); HDL CHOLESTEROL 56 MG/DL (>40); IRON (FE) 106 UG/DL (65-175); LDL CHOLESTEROL 82 MG/DL (<100); NON-HDL-C 102 MG/DL; POTASSIUM SERUM 4.7 MEQ/L (3.5-5.1); SODIUM LEVEL 141 MEQ/L (136-145); TOTAL PROTEIN 6.7 GM/DL (6.4-8.2); TRIGLYCERIDES LEVEL 98 MG/DL (<150); URIC ACID 4.9 MG/DL (3.5-7.2)
[2022-03-08 12:25] LABS: VITAMIN B12 LEVEL 246 PG/ML (247-911)
== END ==
LOC: M SFHCCLAY 08:53
PROVIDERS: ATTEND Family Medicine
DX: D64.9 Anemia, unspecified (principal); I10 Essential (primary) hypertension; E78.2 Mixed hyperlipidemia; Z87.39 Personal history of other diseases of the musculoskeletal system and connective tissue; E56.0 Deficiency of vitamin E; F41.9 Anxiety disorder, unspecified; R26.89 Other abnormalities of gait and mobility; E87.1 Hypo-osmolality and hyponatremia

== ENCOUNTER → 2022-04-08 | Outpatient (REF) | payer MEDICARE ==
[2022-04-08 16:28] LABS: ALT/SGPT 10 U/L (12-78); BILIRUBIN,TOTAL 0.5 MG/DL (0.2-1.0); BLOOD UREA NITROGEN 17 MG/DL (7-18); CALCIUM LEVEL 9.4 MG/DL (8.8-10.2); CARBON DIOXIDE LEVEL 28 MEQ/L (21-32); CHLORIDE LEVEL 105 MEQ/L (98-107); CREATININE FOR GFR 1.06 MG/DL (0.70-1.30); GLOMERULAR FILTRATION RATE > 60.0 (>42); GLUCOSE, FASTING 110 MG/DL (70-100); POTASSIUM SERUM 4.8 MEQ/L (3.5-5.1); SODIUM LEVEL 140 MEQ/L (136-145); TOTAL PROTEIN 7.1 GM/DL (6.4-8.2)
[2022-04-08 16:43] LABS: VITAMIN B12 LEVEL 406 PG/ML (247-911)
== END ==
LOC: M SFHCCLAY 10:37
PROVIDERS: ATTEND Family Medicine
DX: E53.8 Deficiency of other specified B group vitamins (principal); I10 Essential (primary) hypertension

== ENCOUNTER → 2022-05-10 | Outpatient (REF) | payer MEDICARE ==
[2022-05-10 11:43] LABS: BASO % 0.3 % (0.0-1.0); EOS # 0.1 10^3/uL (0.0-0.5); EOS % 0.8 % (0.0-3.0); HEMATOCRIT 38.3 % (42.0-52.0); HEMOGLOBIN 12.3 g/dl (13.5-17.5); LYMPH % 33.4 % (24.0-44.0); MEAN CORPUSCULAR HEMOGLOBIN 32.3 pg (27.0-33.0); MEAN CORPUSCULAR HGB CONC 32.1 g/dl (32.0-36.5); MEAN CORPUSCULAR VOLUME 100.5 fl (80.0-96.0); MONO # 0.7 10^3/uL (0.0-0.8); MONO % 12.2 % (2.0-8.0); NEUTROPHILS # 3.2 10^3/uL (1.5-8.5); NEUTROPHILS % 52.5 % (36.0-66.0); PLATELET COUNT, AUTOMATED 182 10^3/uL (150-450); RED BLOOD COUNT 3.81 10^6/uL (4.30-6.10); WHITE BLOOD COUNT 6.1 10^3/uL (4.0-10.0)
[2022-05-10 12:36] LABS: PERCENT SATURATION 30.1 % (19.7-50.0); THYROID STIMULATING HORMONE 1.7 uIU/ML (0.358-3.740)
== END ==
LOC: M LABDRAWC 11:17
DX: M17.11 Unilateral primary osteoarthritis, right knee (principal); M25.561 Pain in right knee; R53.1 Weakness

== ENCOUNTER → 2022-05-20 | Outpatient (REF) | payer MEDICARE ==
[2022-05-20 16:16] LABS: BASO % 0.3 % (0.0-1.0); EOS % 0.3 % (0.0-3.0); HEMATOCRIT 35.9 % (42.0-52.0); HEMOGLOBIN 11.7 g/dl (13.5-17.5); LYMPH # 1.7 10^3/uL (1.5-5.0); LYMPH % 29.5 % (24.0-44.0); MEAN CORPUSCULAR HEMOGLOBIN 33.1 pg (27.0-33.0); MEAN CORPUSCULAR HGB CONC 32.6 g/dl (32.0-36.5); MEAN CORPUSCULAR VOLUME 101.7 fl (80.0-96.0); MONO # 0.8 10^3/uL (0.0-0.8); MONO % 14.6 % (2.0-8.0); NEUTROPHILS # 3.2 10^3/uL (1.5-8.5); PLATELET COUNT, AUTOMATED 166 10^3/uL (150-450); RED BLOOD COUNT 3.53 10^6/uL (4.30-6.10); WHITE BLOOD COUNT 5.8 10^3/uL (4.0-10.0)
[2022-05-20 16:30] LABS: APPEARANCE, URINE CLEAR (CLEAR); BACTERIA, URINE AUTO NEGATIVE (NEGATIVE); BILIRUBIN, URINE AUTO NEGATIVE (NEGATIVE); BLOOD, URINE BLOOD NEGATIVE (NEGATIVE); COLOR, URINE YELLOW (YELLOW); GLUCOSE, URINE (UA) AUTO NEGATIVE (NEGATIVE); KETONE, URINE AUTO TRACE mg/dL (NEGATIVE); LEUKOCYTE ESTERASE, URINE AUTO NEGATIVE (NEGATIVE); MUCUS, URINE SMALL (NEGATIVE); NITRITE, URINE AUTO NEGATIVE (NEGATIVE); PROTEIN, URINE AUTO NEGATIVE (NEGATIVE); RBC, URINE AUTO 1 /HPF (0-3); SPECIFIC GRAVITY URINE AUTO 1.019 (1.002-1.035); SQUAMOUS EPITHELIAL CELL UR AU 0 /HPF (0-6); UROBILINOGEN, URINE AUTO 0.2 mg/dL (0.0-2.0); WBC, URINE AUTO 0 /HPF (0-3)
[2022-05-20 16:59] LABS: ALT/SGPT 9 U/L (12-78); BILIRUBIN,TOTAL 0.5 MG/DL (0.2-1.0); BLOOD UREA NITROGEN 17 MG/DL (7-18); CALCIUM LEVEL 8.8 MG/DL (8.8-10.2); CARBON DIOXIDE LEVEL 29 MEQ/L (21-32); CHLORIDE LEVEL 107 MEQ/L (98-107); CREATININE FOR GFR 0.97 MG/DL (0.70-1.30); GLOMERULAR FILTRATION RATE > 60.0 (>42); GLUCOSE, FASTING 98 MG/DL (70-100); IRON (FE) 107 UG/DL (65-175); PERCENT SATURATION 29.6 % (19.7-50.0); POTASSIUM SERUM 4.7 MEQ/L (3.5-5.1); SODIUM LEVEL 139 MEQ/L (136-145); TOTAL IRON BINDING CAPACITY 361 UG/DL (250-450); TOTAL PROTEIN 6.8 GM/DL (6.4-8.2)
[2022-05-20 17:07] LABS: HEMOGLOBIN A1c 5.7 %
[2022-05-20 17:11] LABS: INR 0.99; PROTHROMBIN TIME 13.5 SECONDS (12.7-14.5)
[2022-05-20 17:12] LABS: PARTIAL THROMBOPLASTIN TIME 27.7 SECONDS (25.9-37.0)
== END ==
LOC: M LABDRAWC 15:40
PROVIDERS: ATTEND Orthopaedic Surgery
DX: Z01.818 Encounter for other preprocedural examination (principal)

== ENCOUNTER → 2022-06-02 | Outpatient (CLI) | payer MEDICARE | LOC: M LABSMTC 10:01 | PROVIDERS: ATTEND Orthopaedic Surgery | DX: Z11.52 Encounter for screening for COVID-19 (principal); Z01.818 Encounter for other preprocedural examination; M17.11 Unilateral primary osteoarthritis, right knee; M25.561 Pain in right knee ==

== ENCOUNTER → 2022-07-19 | Outpatient (REF) | payer MEDICARE ==
[2022-07-19 18:14] LABS: BASO % 0.6 % (0.0-1.0); EOS # 0.1 10^3/uL (0.0-0.5); EOS % 1.3 % (0.0-3.0); HEMOGLOBIN 11.1 g/dl (13.5-17.5); LYMPH # 1.8 10^3/uL (1.5-5.0); LYMPH % 27.6 % (24.0-44.0); MEAN CORPUSCULAR HEMOGLOBIN 31.5 pg (27.0-33.0); MEAN CORPUSCULAR HGB CONC 30.8 g/dl (32.0-36.5); MEAN CORPUSCULAR VOLUME 102.3 fl (80.0-96.0); MONO # 0.8 10^3/uL (0.0-0.8); NEUTROPHILS # 3.9 10^3/uL (1.5-8.5); NEUTROPHILS % 57.9 % (36.0-66.0); PLATELET COUNT, AUTOMATED 257 10^3/uL (150-450); RED BLOOD COUNT 3.52 10^6/uL (4.30-6.10); WHITE BLOOD COUNT 6.7 10^3/uL (4.0-10.0)
[2022-07-19 19:30] LABS: ALBUMIN 3.8 GM/DL (3.2-5.2); ALT/SGPT 10 U/L (12-78); BILIRUBIN,TOTAL 0.5 MG/DL (0.2-1.0); BLOOD UREA NITROGEN 17 MG/DL (7-18); CALCIUM LEVEL 9.1 MG/DL (8.8-10.2); CARBON DIOXIDE LEVEL 27 MEQ/L (21-32); CHLORIDE LEVEL 103 MEQ/L (98-107); GLOMERULAR FILTRATION RATE > 60.0 (>42); GLUCOSE, FASTING 87 MG/DL (70-100); POTASSIUM SERUM 5.4 MEQ/L (3.5-5.1); SODIUM LEVEL 135 MEQ/L (136-145)
[2022-07-19 20:01] LABS: VITAMIN B12 LEVEL 409 PG/ML (247-911)
== END ==
LOC: M SFHCCLAY 10:45
PROVIDERS: ATTEND Family Medicine
DX: E53.8 Deficiency of other specified B group vitamins (principal); D64.9 Anemia, unspecified; N40.0 Benign prostatic hyperplasia without lower urinary tract symptoms; I10 Essential (primary) hypertension; E56.0 Deficiency of vitamin E; Z12.5 Encounter for screening for malignant neoplasm of prostate
CPT/HCPCS: 80053; 82607; 84446; 85025; G0103

== ENCOUNTER → 2022-09-06 | Outpatient (CLI) | payer MEDICARE | LOC: M CLY 10:34 | PROVIDERS: ATTEND Family Medicine | DX: M79.671 Pain in right foot (principal) ==

== ENCOUNTER → 2023-03-04 | Outpatient (REF) | payer MEDICARE ==
[2023-03-04 18:04] LABS: HEMATOCRIT 38.7 % (42.0-52.0); HEMOGLOBIN 12.5 g/dl (13.5-17.5); MEAN CORPUSCULAR HEMOGLOBIN 32.4 pg (27.0-33.0); MEAN CORPUSCULAR HGB CONC 32.3 g/dl (32.0-36.5); MEAN CORPUSCULAR VOLUME 100.3 fl (80.0-96.0); PLATELET COUNT, AUTOMATED 185 10^3/uL (150-450); RED BLOOD COUNT 3.86 10^6/uL (4.30-6.10); WHITE BLOOD COUNT 5.8 10^3/uL (4.0-10.0)
[2023-03-04 18:21] LABS: URIC ACID 5.7 MG/DL (3.7-9.2)
[2023-03-04 18:24] LABS: ALKALINE PHOSPHATASE 60 U/L (46-116); ALT/SGPT < 9 U/L (7.0-40); AST/SGOT 16 U/L (<34); BILIRUBIN,TOTAL 0.7 MG/DL (0.3-1.2); BLOOD UREA NITROGEN 25 MG/DL (9-23); CALCIUM LEVEL 8.6 MG/DL (8.3-10.6); CARBON DIOXIDE LEVEL 27 MMOL/L (20-31); CHLORIDE LEVEL 105 MMOL/L (98-107); CHOLESTEROL LEVEL 134 MG/DL (<200); CHOLESTEROL RISK RATIO 2.92 (<5); CREATININE FOR GFR 1.02 MG/DL (0.70-1.30); GLOMERULAR FILTRATION RATE > 60.0 (>42); GLUCOSE, FASTING 91 MG/DL (74-106); HDL CHOLESTEROL 45.8 MG/DL (>40); IRON (FE) 124 UG/DL (65-175); LDL CHOLESTEROL 74.8 MG/DL (<100); NON-HDL-C 88.2 MG/DL; POTASSIUM SERUM 4.9 MMOL/L (3.5-5.1); SODIUM LEVEL 138 MMOL/L (136-145); TOTAL PROTEIN 6.6 G/DL (5.7-8.2); TRIGLYCERIDES LEVEL 67 MG/DL (<150)
[2023-03-04 19:46] LABS: HEMOGLOBIN A1c 5.6 % (4.0-6.0)
== END ==
LOC: M SFHCCLAY 12:49
PROVIDERS: ATTEND Family Medicine
DX: D64.9 Anemia, unspecified (principal); R73.01 Impaired fasting glucose; E78.2 Mixed hyperlipidemia; I10 Essential (primary) hypertension; Z87.39 Personal history of other diseases of the musculoskeletal system and connective tissue; E56.0 Deficiency of vitamin E

== ENCOUNTER → 2023-07-12 | Outpatient (CLI) | payer MEDICARE | LOC: M CLY 09:33 | PROVIDERS: ATTEND Physician Assistant | DX: M19.072 Primary osteoarthritis, left ankle and foot (principal); M20.42 Other hammer toe(s) (acquired), left foot ==

== ENCOUNTER → 2023-12-14 | Outpatient (REF) | payer MEDICARE, BC ==
[2023-12-14 10:59] LABS: APPEARANCE, URINE CLEAR (CLEAR); BACTERIA, URINE AUTO NEGATIVE (NEGATIVE); BILIRUBIN, URINE AUTO NEGATIVE (NEGATIVE); BLOOD, URINE BLOOD NEGATIVE (NEGATIVE); COLOR, URINE YELLOW (YELLOW); GLUCOSE, URINE (UA) AUTO NEGATIVE (NEGATIVE); KETONE, URINE AUTO TRACE mg/dL (NEGATIVE); LEUKOCYTE ESTERASE, URINE AUTO NEGATIVE (NEGATIVE); MUCUS, URINE SMALL (NEGATIVE); NITRITE, URINE AUTO NEGATIVE (NEGATIVE); PROTEIN, URINE AUTO NEGATIVE (NEGATIVE); RBC, URINE AUTO 0 /HPF (0-3); SPECIFIC GRAVITY URINE AUTO 1.017 (1.002-1.035); SQUAMOUS EPITHELIAL CELL UR AU 0 /HPF (0-6); UROBILINOGEN, URINE AUTO 0.2 mg/dL (0.0-2.0); WBC, URINE AUTO 0 /HPF (0-3)
== END ==
LOC: M SMT 10:05
PROVIDERS: ATTEND Specialist
DX: N40.1 Benign prostatic hyperplasia with lower urinary tract symptoms (principal)

== ENCOUNTER → 2023-12-15 | Outpatient (REF) | payer BC | LOC: M LABSMT 14:29 | PROVIDERS: ATTEND Specialist | DX: N40.1 Benign prostatic hyperplasia with lower urinary tract symptoms (principal) ==

== ENCOUNTER → 2024-03-06 | Outpatient (REF) | payer MEDICARE ==
[2024-03-06 18:06] LABS: HEMATOCRIT 38.3 % (42.0-52.0); HEMOGLOBIN 12.4 g/dl (13.5-17.5); MEAN CORPUSCULAR HEMOGLOBIN 33.8 pg (27.0-33.0); MEAN CORPUSCULAR HGB CONC 32.4 g/dl (32.0-36.5); MEAN CORPUSCULAR VOLUME 104.4 fl (80.0-96.0); PLATELET COUNT, AUTOMATED 123 10^3/uL (150-450); RED BLOOD COUNT 3.67 10^6/uL (4.30-6.10); WHITE BLOOD COUNT 6.3 10^3/uL (4.0-10.0)
[2024-03-06 18:11] LABS: HEMOGLOBIN A1c 5.4 % (4.0-6.0)
[2024-03-06 18:26] LABS: URIC ACID 5.5 MG/DL (3.7-9.2)
[2024-03-06 18:29] LABS: ALBUMIN 3.8 G/DL (3.2-5.2); ALKALINE PHOSPHATASE 49 U/L (46-116); ALT/SGPT 11 U/L (7.0-40); AST/SGOT 13 U/L (<34); BILIRUBIN,TOTAL 0.4 MG/DL (0.3-1.2); BLOOD UREA NITROGEN 23 MG/DL (9-23); CALCIUM LEVEL 8.9 MG/DL (8.3-10.6); CARBON DIOXIDE LEVEL 27 MMOL/L (20-31); CHLORIDE LEVEL 106 MMOL/L (98-107); CHOLESTEROL LEVEL 155 MG/DL (<200); CHOLESTEROL RISK RATIO 3.37 (<5); CREATININE FOR GFR 1.09 MG/DL (0.70-1.30); GLOMERULAR FILTRATION RATE > 60.0 (>42); GLUCOSE, FASTING 126 MG/DL (74-106); HDL CHOLESTEROL 45.9 MG/DL (>40); IRON (FE) 118 UG/DL (65-175); LDL CHOLESTEROL 80.1 MG/DL (<100); NON-HDL-C 109.1 MG/DL; POTASSIUM SERUM 4.8 MMOL/L (3.5-5.1); SODIUM LEVEL 140 MMOL/L (136-145); TOTAL PROTEIN 6.4 G/DL (5.7-8.2); TRIGLYCERIDES LEVEL 145 MG/DL (<150)
== END ==
LOC: M SFHCCLAY 09:04
PROVIDERS: ATTEND Physician Assistant
DX: D64.9 Anemia, unspecified (principal); I10 Essential (primary) hypertension; R73.01 Impaired fasting glucose; E78.2 Mixed hyperlipidemia; Z87.39 Personal history of other diseases of the musculoskeletal system and connective tissue

== ENCOUNTER 2024-05-22 11:44 | Emergency (ER) | payer MEDICARE ==
[~2024-05-22] VITALS: Ht 188 cm; Wt 127.8 kg
[~2024-05-22 11:44] MED LIST changes: +ALFU10TA23 PO; -ALFU10TA3 PO
[2024-05-22] MEDS ORDERED: GABA-282 PO (15:07)
[2024-05-22 15:29] VITALS: BP 160/80; TEMP 97.3; O2SAT 98
== END 2024-05-22 15:30 | disposition home or self-care (01) ==
LOC: M ED 11:44
DX: M79.604 Pain in right leg (principal); I10 Essential (primary) hypertension; K21.9 Gastro-esophageal reflux disease without esophagitis; E78.5 Hyperlipidemia, unspecified; F41.9 Anxiety disorder, unspecified; N40.0 Benign prostatic hyperplasia without lower urinary tract symptoms; R00.2 Palpitations; Z90.89 Acquired absence of other organs; Z88.8 Allergy status to other drugs, medicaments and biological substances; Z86.73 Personal history of transient ischemic attack (TIA), and cerebral infarction without residual deficits; Z79.52 Long term (current) use of systemic steroids; Z79.899 Other long term (current) drug therapy; Z79.84 Long term (current) use of oral hypoglycemic drugs

== ENCOUNTER → 2024-06-15 | Outpatient (CLI) | payer MEDICARE ==
[~2024-06-15] MED LIST changes: +GABA-282 PO
== END ==
LOC: M PLARAD 09:58
PROVIDERS: ATTEND Family Medicine
DX: M79.661 Pain in right lower leg (principal); I73.9 Peripheral vascular disease, unspecified

== ENCOUNTER → 2024-08-02 | Outpatient (REF) | payer MEDICARE ==
[~2024-08-02] MED LIST changes: +GABA-1172 PO; -GABA-282 PO
[2024-08-03 13:45] LABS: RSV AMPLIFICATION NEGATIVE (NEGATIVE)
== END ==
LOC: M SFHCCLAY 11:58
PROVIDERS: ATTEND Physician Assistant
DX: R05.1 Acute cough (principal)

== ENCOUNTER → 2025-02-07 | Outpatient (REF) | payer MEDICARE ==
[2025-02-07 19:25] LABS: HEMATOCRIT 39.3 % (42.0-52.0); HEMOGLOBIN 12.9 g/dl (13.5-17.5); MEAN CORPUSCULAR HGB CONC 32.8 g/dl (32.0-36.5); MEAN CORPUSCULAR VOLUME 103.7 fl (80.0-96.0); PLATELET COUNT, AUTOMATED 170 10^3/uL (150-450); RED BLOOD COUNT 3.79 10^6/uL (4.30-6.10); WHITE BLOOD COUNT 5.6 10^3/uL (4.0-10.0)
[2025-02-07 19:49] LABS: FERRITIN 66.4 NG/ML (10.5-307.3); THYROID STIMULATING HORMONE 1.581 uIU/ML (0.55-4.78)
[2025-02-07 19:50] LABS: FREE T4 1.28 NG/DL (0.89-1.76)
[2025-02-07 19:52] LABS: FOLATE 8.25 NG/ML (>5.4)
[2025-02-07 20:00] LABS: ALBUMIN 3.8 G/DL (3.2-5.2); ALKALINE PHOSPHATASE 52 U/L (40-129); ALT/SGPT 12 U/L (7.0-40); AST/SGOT < 8 U/L (<34); BILIRUBIN,TOTAL 0.4 MG/DL (0.3-1.2); BLOOD UREA NITROGEN 19 MG/DL (9-23); CALCIUM LEVEL 8.5 MG/DL (8.3-10.6); CARBON DIOXIDE LEVEL 26 MMOL/L (20-31); CHLORIDE LEVEL 105 MMOL/L (98-107); CHOLESTEROL LEVEL 164 MG/DL (<200); CHOLESTEROL RISK RATIO 3.67 (<5); CREATININE FOR GFR 0.91 MG/DL (0.70-1.30); GLOMERULAR FILTRATION RATE 86.3 (>42); GLUCOSE, FASTING 98 MG/DL (74-106); HDL CHOLESTEROL 44.6 MG/DL (>40); IRON (FE) 98 UG/DL (65-175); NON-HDL-C 119.4 MG/DL; POTASSIUM SERUM 4.7 MMOL/L (3.5-5.1); SODIUM LEVEL 139 MMOL/L (136-145); TOTAL PROTEIN 6.8 G/DL (5.7-8.2); TRIGLYCERIDES LEVEL 112 MG/DL (<150)
[2025-02-07 20:02] LABS: TOTAL T3 114.8 NG/DL (60.0-181.0)
[2025-02-07 21:48] LABS: HEMOGLOBIN A1c 5.8 % (4.0-6.0)
== END ==
LOC: M SFHCCLAY 11:43
PROVIDERS: ATTEND Family Medicine
DX: R53.83 Other fatigue (principal); R00.2 Palpitations; I10 Essential (primary) hypertension; R73.01 Impaired fasting glucose; D64.9 Anemia, unspecified

== ENCOUNTER → 2025-05-30 | Outpatient (CLI) | payer MEDICARE | LOC: M RAD 15:03 | PROVIDERS: ATTEND Family Medicine | DX: R42 Dizziness and giddiness (principal); R41.3 Other amnesia; I63.81 Other cerebral infarction due to occlusion or stenosis of small artery; G31.9 Degenerative disease of nervous system, unspecified; J32.4 Chronic pansinusitis; H70.91 Unspecified mastoiditis, right ear ==